=== PATIENT | male | born 1945 | race Asian ===

== ENCOUNTER 2024-04-18 16:44 | Inpatient (IN) | payer OTHER ==
[~2024-04-18] VITALS: Ht 160 cm; Wt 81.6 kg
[2024-04-18 16:57] VITALS: BP_SYST 208; PULSE 34; RESP 22; TEMP 98.3; O2SAT 99
[2024-04-18] MEDS ORDERED: DOXA1TAB2 PO ×2 (17:05→20:28)
[2024-04-18] MEDS ORDERED: LIP20 PO (17:05)
[2024-04-18] MEDS ORDERED: CALC-823 PO (17:05)
[2024-04-18] MEDS ORDERED: ALLO100T PO ×2 (17:05→20:28)
[2024-04-18 18:05] LABS: BASOPHILS # (AUTO) 0.1 K/uL (0.0-0.2); BASOPHILS % (AUTO) 0.9 % (0.0-2.0); EOSINOPHILS # (AUTO) 0.4 K/uL (0.0-0.4); EOSINOPHILS % (AUTO) 4.4 % (0.0-4.0); HEMATOCRIT 47.3 % (36-54); HEMOGLOBIN 15.8 g/dL (14.0-18.0); LYMPHOCYTES # (AUTO) 2.6 K/uL (1.0-5.5); LYMPHOCYTES % (AUTO) 30.7 % (20.5-51.5); MEAN CORPUSCULAR HEMOGLOBIN 32 pg (27-31); MEAN CORPUSCULAR HGB CONC 34 % (32-36); MEAN CORPUSCULAR VOLUME 94 fL (79.0-98.0); MONOCYTES # (AUTO) 0.8 K/uL (0.0-1.0); MONOCYTES % (AUTO) 9.8 % (1.7-9.3); NEUTROPHILS # (AUTO) 4.5 K/uL (1.8-7.7); NEUTROPHILS % (AUTO) 54.2 % (40.0-70.0); PLATELET COUNT (AUTO) 193 K/uL (130-430); RED BLOOD CELL COUNT(AUTO) 5.01 MIL/uL (4.2-6.2); RED CELL DISTRIBUTION WIDTH 15.2 % (9.0-15.0); WHITE BLOOD COUNT (AUTO) 8.3 K/uL (4.8-10.8)
[2024-04-18 18:07] LABS: ANION GAP 7 (5-15); CALCIUM 9.1 mg/dL (8.4-11.0); CARBON DIOXIDE 29 mmol/L (23-29); CHLORIDE 107 mmol/L (98-107); CREATININE 1.97 mg/dL (0.55-1.30); GLUCOSE 99 mg/dL (74-106); POTASSIUM 4.3 mmol/L (3.5-5.1); SODIUM SERUM 143 mmol/L (136-145); UREA NITROGEN, BLOOD 32 mg/dL (8-21)
[2024-04-18 18:16] LABS: PROTHROMBIN TIME 10.6 SECS (9.5-12.5)
[2024-04-18] MEDS ORDERED: ATOR20TA64 PO (20:28)
[2024-04-19] VITALS (14 sets, daily range): BP systolic 102–169; PULSE 27–69; RESP 12–24; TEMP 89.5–98.3; O2SAT 93–98
[2024-04-19] MEDS ORDERED: LORazepam 2 MG/ML VIAL IVP PRN (11:15)
[2024-04-19] MEDS ORDERED: HYDROcodone/ACETAMIN 10-325 MG TAB PO PRN (11:15)
[2024-04-19] MEDS ORDERED: ACETAMINOPHEN 325 MG TABLET PO PRN (11:15)
[2024-04-19] MEDS ORDERED: ONDANSETRON HCL 4 MG/2 ML VIAL IVP PRN ×2 (11:15→16:45)
[2024-04-19] MEDS ORDERED: NALOXONE HCL 0.4 MG/ML AMP (NARCAN) IVP PRN ×4 (11:15→16:45)
[2024-04-19] MEDS: CALCIUM CARBONATE/VITAMIN D3 1 TAB TABLET PO ONE (12:44)
[2024-04-19] MEDS: ALLOPURINOL 100 MG TABLET (ZYLOPRIM) PO ONE (12:45)
[2024-04-19] MEDS: ATORVASTATIN 20 MG TABLET PO ONE (12:45)
[2024-04-19] MEDS ORDERED: NS IRRIG SOLN 1000 ML IR ONE (12:50)
[2024-04-19] MEDS ORDERED: HEPARIN SODIUM,PORCINE/NS/PF 1,000 UNITS/500 ML BAG IV ONE (12:50)
[2024-04-19] MEDS ORDERED: LR 1,000 ML IV.SOLN IV ONE (12:50)
[2024-04-19] MEDS ORDERED: LIDOCAINE/EPI 1% 1:100000 20 ML VIAL ONE (12:50)
[2024-04-19] MEDS ORDERED: WATER FOR IRRIGATION,STERILE 1,000 ML IRRIG.SOLN IR ONE (12:50)
[2024-04-19] MEDS ORDERED: HEPARIN SODIUM, PORCINE 10,000 UNITS/ 10 ML VIAL ONE (12:50)
[2024-04-19] MEDS ORDERED: NS 250 ML IV.SOLN IV ONE (12:50)
[2024-04-19] MEDS ORDERED: PROPOFOL 200MG/ 20ML VIAL (DIPRIVAN) IV ONE (12:50)
[2024-04-19] MEDS: NORMAL SALINE 5 ML DISP.SYRIN IVF SCH (14:00)
[2024-04-19] MEDS ORDERED: HYDROmorphone 1 MG/ML INJ. CARTRIDGE IVP PRN ×3 (16:45)
[2024-04-19] MEDS ORDERED: ePHEDrine sulfate 50 MG/ML VIAL IVP PRN (16:45)
[2024-04-19] MEDS ORDERED: LABETALOL 100 MG/ 20ML VIAL IVP PRN (16:45)
[2024-04-19] MEDS ORDERED: METOCLOPRAMIDE HCL 10 MG/2 ML VIAL IVP PRN (16:45)
[2024-04-19] MEDS: THROMBIN (BOVINE) 5000 UNITS/ VIAL TP ONE (17:26)
[2024-04-19] MEDS: MIDAZOLAM HCL 2 MG/2 ML VIAL (VERSED) ONE (18:01)
[2024-04-19] MEDS: DOPAMINE IV ONE (19:21)
[2024-04-19] MEDS: DOXAZOSIN MESYLATE 2 MG TABLET PO SCH (21:40)
[2024-04-20] VITALS (16 sets, daily range): BP systolic 95–146; PULSE 60–77; RESP 13–30; TEMP 97.5–99.6; O2SAT 90–96
[2024-04-20 05:00] LABS: BASOPHILS % (AUTO) 0.2 % (0.0-2.0); HEMATOCRIT 45.6 % (36-54); HEMOGLOBIN 14.9 g/dL (14.0-18.0); LYMPHOCYTES % (AUTO) 6.1 % (20.5-51.5); MEAN CORPUSCULAR HEMOGLOBIN 31 pg (27-31); MEAN CORPUSCULAR HGB CONC 33 % (32-36); MEAN CORPUSCULAR VOLUME 95 fL (79.0-98.0); MONOCYTES # (AUTO) 0.8 K/uL (0.0-1.0); MONOCYTES % (AUTO) 4.9 % (1.7-9.3); NEUTROPHILS # (AUTO) 14.6 K/uL (1.8-7.7); NEUTROPHILS % (AUTO) 88.8 % (40.0-70.0); PLATELET COUNT (AUTO) 178 K/uL (130-430); RED BLOOD CELL COUNT(AUTO) 4.78 MIL/uL (4.2-6.2); RED CELL DISTRIBUTION WIDTH 15.6 % (9.0-15.0); WHITE BLOOD COUNT (AUTO) 16.4 K/uL (4.8-10.8)
[2024-04-20 05:20] LABS: ANION GAP 9 (5-15); CALCIUM 8.7 mg/dL (8.4-11.0); CARBON DIOXIDE 26 mmol/L (23-29); CHLORIDE 107 mmol/L (98-107); CREATININE 1.44 mg/dL (0.55-1.30); GLUCOSE 149 mg/dL (74-106); POTASSIUM 4.1 mmol/L (3.5-5.1); SODIUM SERUM 142 mmol/L (136-145); THYROID STIMULATING HORMONE 3.27 uIu/mL (0.34-4.82); UREA NITROGEN, BLOOD 27 mg/dL (8-21)
[2024-04-20] MEDS: HYDROcodone/ACETAMIN 5-325 MG TAB (NORCO/ VICODIN) PO PRN (08:30)
[2024-04-20] MEDS: ATORVASTATIN 20 MG TABLET PO SCH (08:31)
[2024-04-20] MEDS: ALLOPURINOL 100 MG TABLET (ZYLOPRIM) PO SCH (08:31)
[2024-04-20] MEDS: CALCIUM CARBONATE/VITAMIN D3 1 TAB TABLET PO SCH (09:00)
== END 2024-04-20 19:20 | disposition home or self-care (01) | DRG 228 ==
LOC: SED 16:44 → SIC 19:18 → STU 04-20 16:13
PROVIDERS: ADMIT Preventive Medicine Preventive Medicine/Occupational Environmental Medicine; ATTEND Preventive Medicine Preventive Medicine/Occupational Environmental Medicine
PROC: 02HK3NZ Insertion of Intracardiac Pacemaker into Right Ventricle, Percutaneous Approach (ICD-10-PCS; principal; 2024-04-19 18:05)
DX: I44.2 Atrioventricular block, complete (principal); N17.0 Acute kidney failure with tubular necrosis; D68.9 Coagulation defect, unspecified; E11.9 Type 2 diabetes mellitus without complications; D64.9 Anemia, unspecified; E78.5 Hyperlipidemia, unspecified; M10.9 Gout, unspecified; I10 Essential (primary) hypertension; Z79.899 Other long term (current) drug therapy
CPT/HCPCS: 36415; 71045; 76000; 80048; 83735; 83880; 84443; 84484; 85025; 85610; 85730; 87081; 93005; 93306; 99291; C1786; C1894; J1265; J1644; J2250; J2704; J7050; J7120; Q9967